=== PATIENT | female | born 1975 | race Caucasian/White ===

== ENCOUNTER 2022-06-11 18:20 | Emergency (ER) | payer OTHER, SELFPAY ==
--- NOTE | ~2022-06-11 | XR_ITS ---
XR ankle LT min 3V DATE: 06/11/2022 18:56 INDICATION: Pop in posterior ankle. Pain. TECHNIQUE: 4 views COMPARISON: None FINDINGS: No fracture or dislocation of the ankle or disruption of the ankle mortise. No periosteal r eaction or bone destruction. Plantar calcaneal enthesopathy. IMPRESSION: No fracture or dislocation of the ankle Plantar calcaneal enthesopathy Reviewed, dictated and finalized at location A.
[2022-06-11 18:22] VITALS: BP 139/87; PULSE 83; RESP 16; TEMP 37.4; O2SAT 100
[2022-06-11 19:47] VITALS: BP 140/101; PULSE 84; RESP 15; TEMP 37.2; O2SAT 97
--- NOTE | 2022-06-11 20:08 | PC.NURSE ---
Upon assessment patient had equal +3 bilateral pedal pulses.
--- NOTE | 2022-06-11 20:51 | ED.LOWEXIN ---
HPI - Extremity Injury (Lower) General Chief Complaint: Extremity Injury, Lower Stated Complaint: lower extremity injury Time Seen by Provider: 06/11/22 20:00 History of Present Illness HPI Narrative: This is a 47-year-old female who denies past medical history, who presents emergency department complaining of left ankle pain. She states she was playing soccer, when during a fast movement, she felt a pop in the left ankle accompanied by immediate 6/10 sharp pain. Her pain is since improved to a 3 of 10 though she complains of some left foot numbness. She states she was able to walk after the incident though feels some weakness in the left foot. Related Data Allergies Allergy/AdvReac Type Severity Reaction Status Date / Time adhesive Allergy Mild Rash Verified 06/11/22 18:26 Review of Systems Review of Systems: CONSTITUTIONAL: Denies fever, chills, or sweats. CARDIOVASCULAR: Denies chest pain, palpitations, or edema. RESPIRATORY: Denies cough or dyspnea. GASTROINTESTINAL: Denies abdominal pain, nausea, vomiting, or diarrhea. GENITOURINARY: Denies dysuria or hematuria. SKIN: Denies rash or itching. MUSCULOSKELETAL: Left ankle pain denies back pain or myalgia. NEUROLOGIC: Denies headache, numbness, dizziness, or weakness. PSYCHIATRIC: Denies anxiety or depression. [facility] Social History Social History (Updated 06/11/22 @ 20:52 by Alessio Chery MD) Smoking status: Never smoker Alcohol intake: current Substance use: never Exam Narrative: GENERAL: Well-developed, well-nourished, and in no acute distress. HEAD: Normocephalic, atraumatic. EYES: PERRLA and EOMI. CHEST: Clear to auscultation. No respiratory distress. No wheezes rales or rhonchi HEART: Regular rate and rhythm. No murmur heard. Normal peripheral pulses. ABDOMEN: Soft, nontender, nondistended, normal active bowel sounds. EXTREMITIES: Mild swelling noted to the posterior aspect of the left ankle. Tender to palpation over the posterior aspect with diminished prominence of the Achilles tendon. Normal range of motion with intact strength on flexion of the left ankle. No edema. SKIN: Warm, dry, no rash. NEURO: No focal deficits. Alert and oriented x3. Strength 5/5 in all extremities, sensation intact bilaterally, no noted ataxia. PSYCH: Normal mood and affect. Course Course Emergency Course: 20:46 - Bedside ultrasound by me of the left Achilles is consistent with rupture. The patient's exam is most consistent with partial Achilles tendon rupture. Will place in a posterior leg splint with slight plantarflexion with plan for orthopedic surgery follow-up. 21:15 - I reevaluated the patient after splint placement. Her exam is not concerning for neurovascular compromise. I recommended orthopedic surgery follow up in 5-7 days. Discussed return and emergency precautions including signs/symptoms of neurovascular compromise and infection. The patient voiced understanding and is comfortable with the plan. Vital Signs Vital signs: Vital Signs Temperature 99.4 F 06/11/22 18:22 Pulse Rate 83 06/11/22 18:22 Respiratory Rate 16 06/11/22 18:22 Blood Pressure 139/87 06/11/22 18:22 Pulse Oximetry 100 06/11/22 18:22 Oxygen Delivery Room Air 06/11/22 18:22 Temperature 98.5 F 06/11/22 21:30 Pulse Rate 76 06/11/22 21:30 Respiratory Rate 16 06/11/22 21:30 Blood Pressure 114/83 06/11/22 21:30 Pulse Oximetry 99 06/11/22 21:30 Oxygen Delivery Room Air 06/11/22 19:47 Procedures Orthopedic Splinting/Casting Injury #1: Splinting/Casting Date: 06/11/22 Splinting/Casting Time: 21:15 Side: left Lower Extremity Injury Location: ankle Lower Extremity Immobilizer: posterior splint Splint: customized in ED Pre-Procedure Neuro Vascular Exam: normal Post-Procedure Neuro Vascular Exam: normal Other Orthopedic Equipment: crutches MDM - Extremity Injury (Lower) MDM Narrative Medical
[2022-06-11 21:30] VITALS: BP 114/83; PULSE 76; RESP 16; TEMP 36.9; O2SAT 99
== END 2022-06-11 21:32 | disposition home or self-care (01) ==
PROVIDERS: Emergency Provider Preventive Medicine Aerospace Medicine
DX: S86.012A Strain of left Achilles tendon, initial encounter (principal); X50.9XXA Other and unspecified overexertion or strenuous movements or postures, initial encounter; Y93.66 Activity, soccer
CPT/HCPCS: 29515; 73610; 99283

== ENCOUNTER 2024-04-20 08:45 | Emergency (ER) | payer SELFPAY ==
--- OUTSIDE RECORDS SUMMARY | 2024-04-20 08:47 | XMS_ITS | Clinical Summary ---
Author Organization [facility] Address [address] [place] [address] Care Team Providers Care Char Dust Cleaner And Salvager Name Role Phone Unavailable Primary Care Provider Unavailabl e Source Comments [facility],non-owned Affiliates and Associated Physician Practices is amultiple site organization consisting of ambulatory clinics and hospital sitesin [place], [place] and [place]. This disclosure is being madepursuant to the Care Everywhere program and may not contain all information available regarding this patient. Last updated 17.[facility] Active Problems Problem Noted Date Diagnosed Date Hyphema 10/22/2012 Family History Medical History Relation Name Comments Heart Disease Paternal Grandmother Blindness Neg Hx Cataract Neg Hx Glaucoma Neg Hx Macular Degeneration Neg Hx Relation Name Status Comments Paternal Grandmother Social History Tobacco Use Types Packs/Day Years Used Date Smoking Tobacco: Former Cigarettes Smokeless Tobacco: Never Alcohol Use Standard Drinks/Week Comments Yes 11.7 (1 standard drink = 0.6 oz pure alcohol) Sex and Gender Information Value Date Recorded Sex Assigned at Not on file Gender Identity Not on file Sexual Orientation Not on file Last Filed Vital Signs Vital Sign Reading Time Taken Comments Blood Pressure 127/81 10/21/2012 2:38 AM CDT Pulse 55 10/21/2012 2:38 AM CDT Temperature 36.7 ??C (98.1 ??F) 10/20/2012 8:52 PM CD T Respiratory Rate 18 10/21/2012 2:38 AM CDT Oxygen Saturation 99% 10/21/2012 1:28 AM CDT Inhaled Oxygen Concentration - - Weight - - Height - - Body Mass Index - - Plan of Treatment Health Maintenance Due Date Last Done Comments FERNANDO (AGES 45-75) - COL ON CA SCREENING 1975 COLON MONITORING 1975 COLONOSCOPY - COLON CA SCREENING 1975 CT COLONOGRAPHY - COLON CA SCREENING 1975 Colorectal Cancer Screening 1975 FIT - COLON CA SCREENING 1975 FLEX SIG - COLON CA SCREENING 1975 LIPID TESTING 1975 MAMMOGRAM 1975 PAP SMEAR 1975 HIV SCREENING 1990 HEPATITIS C SCREENING 01/18/1993 DTAP/TDAP/TD VACCINES (1 - Tdap) 1994 HEPATITIS B VACCINE (1 of 3 - 19+ 3-dose series) 1994 COVID-19 VACCINE (1 2023-2 5 season) 2023 INFLUENZA VACCINE (#1) 2023 DEPRESSION SCREENING 03/19/2024 ZOSTER VACCINE (1 of 2) 2025 HIB VACCINE Aged Out No longer eligi ble based on patient's age to complete this topic HPV VACCINE Aged Out No longer eligi ble based on patient's age to complete this topic MENINGOCOCCAL (Group B) VACCINE Aged Out No longer eligible based on patient's age to complete this topic MENINGOCOCCAL VACCINE Aged Out No marshall sulma eligible based on patient's age to complete this topic PNEUMOCOCCAL VACCINE Aged Out No long er eligible based on patient's age to complete this topic
--- OUTSIDE RECORDS SUMMARY | 2024-04-20 08:47 | XMS_ITS | Data Portability ---
Author Organization [place] [facility] [employer], Main Office Address [address] [place] [address] Assessment Encounter Date Assessment Date Assessment LastModified by Organization Details LastModified Time 08/22/2022 08/22/2022 Patient returns status post Achilles tendon repair. She has benefited aggressive on she not using any support walking normally. She has been swimming and she has got some mild erythema and swelling about the incision. Placed on some Keflex is no obvious drainage at this point. I will see her back 2 weeks if she has any changes or problems she will call discussed. [email or web address] Not available 08/22/2022 09:18:10 10/02/2022 10/02/2022 Patient is statu s post Achilles tendon repair left. She has unusual swelling and prominence over the scar. Racquet I had her on a short course of antibiotics she really does not have any obvious purulence there is no erythema about it just prominent she is going to try just gentle massage and Aquaphor I will see her back in a month for follow-up. PE changes she will call she may be reacting to the sutures however at this point I would like to wait before considering debriding removing anything discussed. I will see her back in 3 weeks for follow-up [email or web address] Not available 10/02/2022 10:10:40 10/24/2022 10/24/2022 Patient returns for and sedation weeks minimally changed she continues to have some swelling about the incision with this infected her she has have reaction to the suture it is difficult to say at any rate I think it needs to be debrided she does have a powerful plantar flexion which is good. I told her that if she does have infection this can be a problem with necrosis in the tendon we will debride it and see if we can clean it up discussed. [email or web address] Not available 10/24/2022 09:30:14 11/07/2022 11/07/2022 Patient returns status post debridement left Achilles. The incision looks relatively clean apparently the cultures have shown its beta lactamase positive will switch her to doxycycline for this. I will see her back and we could remove the other half of the sutures have been removed today she should continue to keep a clean in the meantime. I told her that sometimes infection is hard to get rid of particular in the area where has lower blood flow, discussed. She is instructed to call immediately if there is any change. [email or web address] Not available 11/07/2022 09:22:49 11/14/2022 11/14/2022 Patient returns Achilles rupture left. I debrided the area and she has still can not some areas of concern in the incision. She also most incisions healed nicely she has got 1 area that is about 8 mm across it is open. We will treat this symptomatically at this point. I think she should stay on the doxycycline for the present time and I have given her prescription for that. I will see her back in a couple weeks see assess her progress if she has any changes or problems she will call immediately. [email or web address] Not available 11/14/2022 09:53:32 Plan of Treatment Reminders Order Date Submit Date Provider Last Modified By Organization Details Last Modified Time Details Appointments None recorded. Lab None recorded. Referral None recorded. Procedures None recorded. Surgeries None recorded. Imaging None recorded. Medication Orders cephalexin 500 mg capsule 2022 023 eleni Fulton [facility][id number], [address], [place], [place], [id number], 09:18:37 cephalexin 500 mg capsule 2022 023 eleni Fulton [facility] #[id number], [address], [place], [address], 09:23:01 doxycycline hyclate 100 mg tablet 2022 023 eleni Fulton [facility] #[id number], [address], [place], [address], 09:53:21 doxycycline hyclate 100 mg tablet 2022 023 eleni [address] [id number], [address], [place], [address], 09:46:58 Patient TargetsNo targets recorded. Patient InstructionsNo instructions recorded. Reason for Referral None Reported. Results Created Date Observation Date Name Description Value Unit Range Abnormal Flag Note LastModifiedBy Organization Detail LastModifiedTime 10/31/19 23 10/30/2022 CULTU RE WOUND /TISS UE+GR .STAI N [email or web address] ===== ===== ===== ===== ===== ===== ===== ===== ===== ===== ===== ===== ===== ===== ===== ===== ===== ===== ===== ===== ===== ===== ===== ===== CULTU RE NO.: [id number] Exam Statu s: Final Exam Type: CULTU RE WOUND /TISS UE+ ===== ===== ===== ===== ===== ===== ===== ===== ===== ===== ===== ===== ===== ===== ===== ===== ===== ===== ===== ===== ===== ===== ===== ===== Cultu re Repor t: Organ ism #01 Staph yloco ccus aureu s (staa ur) Antib iotic s staau r Achie vable Achie vable (01) Dosag e Serum Level Urine Level mcg/m l mcg/m l Beta- Lacta shirley + POS 000M Cefox itin Scree n - NEG 000M Cipro floxa eleni <=0.5 S 000M Clind amyci n <=0.1 2 S 000M Dapto mycin 0.5 S 000M Doxyc yclin e <=0.5 S 000M Eryth romyc in <=0.2 5 S 000M Genta micin <=0.5 S 000M Induc ible Clind amyci - NEG 000M Levof loxac in 0.25 S 000M Linez olid 2 S 000M Oxaci llin LUCIA 0.5 S 000M Rifam pin <=0.5 S 000M Tetra cycli ne <=1 S 000M Trime thopr im/Aviles lfame <=10 S 000M Vanco mycin <=0.5 S 000M Not Available [facility] ([facility]) [address] [place], [address], 11/02/2022 08:42:52 Result Notes None recorded. Problems Name Problem SNOMED Code Status Onset Date Resolution Date Notes Provider Name and Address Organization Details Recorded Time Ankle pain 568911653 Active 023 DARREN Price null, [facility] [employer] [facility] 3 10:54:45 Ankle pain 430840718 Active 023 DARREN Price null, [facility] 3 10:54:55 Injury of Achilles tendon 647782531 Active 023 Jordy Paredes MD [address], [address], [place], [address] , [facility] [employer] [facility] 3 07:44:04 Problem Notes None recorded. Procedures Surgical History Date Name Laterality Status Provider Name and Address Organization Details Recorded Time leg repair completed DARREN Price [facility] 06/13/2022 10:53:53 removal of ectopic fetus completed DARREN Price [facility] [employer] [facility] 06/13/2022 10:54:05 section completed DARREN Price [facility] [employer] [facility] 06/13/2022 10:54:15 Imaging Results None recorded. Procedure Notes None recorded. Medical Equipment None Reported. Medications Name Sig Start Date Stop Date Status Note LastModified by Organization Details LastModified Time acetaminophen 300 mg-codeine 30 mg tablet TAKE 1 TABLET BY MOUTH EVERY 6 HOURS active Not Available Not Available No t Available valacyclovir 500 mg tablet TAKE 1 TABLET BY MOUTH EVERY DAY active Not Available Not Available No t Available oxycodone-aceta minophen 5 mg-325 mg tablet TAKE 1 TABLET BY MOUTH EVERY 8 HOURS NEEDED FOR PAIN active Not Available Not Available No t Available cephalexin 500 mg capsule Take 1 capsule every 8 hours by oral route for 10 days. 2022 active Not Available Not Available Not Avai lable [place] 7.5 mg-325 mg tablet Take 1 tablet every 6 hours by oral route. 2022 active Not Available Not Available Not Avai lable doxycycline hyclate 100 mg tablet Take 1 tablet twice a day by oral route. 2022 active Not Available Not Available Not Avai malikale Vitals Date Recorded Body height Body mass index (BMI) Body weight Provider Name and Address Organization Details Last Updated DateTime 08/22/2022 162.56 cm 27.5 kg/m2 32732.78 g Basia Michael [employer] 08/22/2022 09:03:57 Date Recorded Body height Provider Name an d Address Organization Details Last Updated DateTime 10/02/2022 162.56 cm Basia Michael [employer] 10/02/2022 09:26:39 Date Recorded Body height Body mass index (BMI) Body weight Provider Name and Address Organization Details Last Updated DateTime 10/24/2022 162.56 cm 27.5 kg/m2 84513.78 g Basia Michael [employer] 10/24/2022 09:05:42 Date Recorded Body height Body mass index (BMI) Body weight Provider Name and Address Organization Details Last Updated DateTime 11/07/2022 162.56 cm 28.3 kg/m2 09490.74 g Basia Michael [employer] 11/07/2022 09:06:51 Date Recorded Body height Body mass index (BMI) Body weight Provider Name and Address Organization Details Last Updated DateTime 11/14/2022 162.56 cm 28.3 kg/m2 34960.74 g Rebecca Acosta CNA [employer] 11/14/2022 09:16:30 Social History Question Answer Notes LastModified by Organizat ion Details LastModified Time Tobacco Smoking Status Never Smoker Basia Alec, [facility] null, [place] [facility] 06/13/2022 10:53:24 What Is Your Level Of Alcohol Consumption? Occasional [email or web address] Information not available 06/13/2022 Sex: Unknown Functional Status None recorded. Mental Status None recorded. Family History Relationship Description Onset Age of this Age Resolved Age Notes LastModified by Organization Details LastModified Time Maternal Grandfather Heart disease [email or web address] Not available 2022 10:52:43 Mother Hypertensive disorder [email or web address] Not available 2022 10:52:58 Mother Diabetes mellitus [email or web address] Not available 2022 10:53:06 Medical History No medical history recorded. Gynecological HistoryNo gynecological history recorded. Obstetrics History GPAL:G 0 P 0 0 0 0 Past Encounters Encounter ID Performer Location Encounter Start Date Encounter Closed Date Diagnosis/Indication Diagnosis SNOMED-CT Code Diagnosis ICD10 Code Diagnosis Note [id number] MD JOSSIE Patterson_[place] [address] 06/13/2022 10:40:44 06/13/2022 11:11:28 Ankle pain 243425435 M25.572 [id number] MD YARI PattersonJose [place] [address] 06/27/2022 08:56:59 06/27/2022 10:27:30 Injury of Achilles tendon 980948674 S86.002D [id number] MD YARI PattersonJose [place] [address] 07/25/2022 09:00:18 07/25/2022 09:31:27 Injury of Achilles tendon 364083342 S86.002D [id number] MD YARI PattersonJose [place] [address] 08/22/2022 09:02:28 08/22/2022 09:19:48 Injury of Achilles tendon 072524969 S86.002D [id number] [facility] [place] [facility] [place] [address] [place] [address] 10/02/2022 09:21:14 10/02/2022 10:03:24 Injury of Achilles tendon 630364207 S86.002D [id number] Jordy Paredes MD [facility]_[address] [address] 10/24/2022 09:02:32 10/24/2022 10:09:56 Injury of Achilles tendon 575855341 S86.002D [id number] Jordy Paredes MD [facility]_[address] [address] 11/07/2022 09:03:56 11/07/2022 09:36:51 Injury of Achilles tendon 603114812 S86.002D [id number] Jordy Paredes MD [address] [address] 11/14/2022 09:08:17 11/14/2022 10:14:49 Injury of Achilles tendon 174174840 S86.002D Health Concerns Section Related Observation LastModified by Organization Detai ls LastModified Time None Recorded Concern Status LastModified by Organization Details LastModified Time None Recorded Advance Directives Directive None Recorded Payers Encounter Date Sequence Insurance Name Policy Number Policy Rees Covered Member ID Rees Member ID Guarantor Name 08/22/2022 1 [employer] (POS) [id number] Hellen Miller [id number] [employer]en [employer] 10/02/2022 1 [employer] (POS) [id number] Hellen Miller [id number] [employer]en [employer] 10/24/2022 1 [employer] (POS) [id number] Hellen Miller [id number] [employer]en [employer] 11/07/2022 1 [employer] (POS) [id number] Hellen Miller [id number] 5 Hellen [employer] 11/14/2022 1 [employer] (POS) [id number] Hellen Miller [id number] Hellen [employer] Notes Date Note Type Note Provider Name and Address Organization Details Recorded Time 08/22/2022 text/html Patient returns status post Achilles repair left. Overall she is doing fine except that she has got a little evidence of infection of the some redness about the incision. She has been swimming and basically doing what she wants. Jordy Paredes MD [address], [place], [address], [facility] [employer] [facility] [employer] [facility] 08/22/2022 09:23:37 10/02/2022 text/html Patient returns status post Achilles tendon reconstruction repair left. Functionally she is doing well she does have this unusual swelling or prominence over the scar. Jordy Paredes MD [address], [place], [address], [employer] [facility] [employer] 10/02/2022 10:11:23 10/24/2022 text/html Patient returns status post Achilles tendon reconstruction repair left. Functionally she is doing well she does have this unusual swelling or prominence over the scar. Jordy Paredes MD [address], [place], [address], [facility] [employer] [facility] [employer] 10/24/2022 09:30:28 11/07/2022 text/html Patient returns status debridement left Achilles. She is doing well having very little pain walking normally. Jordy Paredes MD [address], [place], [address], [facility] [employer] [facility] 11/07/2022 09:53:46 11/14/2022 text/html Patient returns status debridement left Achilles. She is doing well having very little pain walking normally. She does not have much pain but she did have some redness and has a little open area on the incision. Jordy Paredes MD [address], [place], [address], [facility] [employer] 11/14/2022 09:53:47 OBGyn Episode No OBEpisode recorded.
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
--- OUTSIDE RECORDS SUMMARY | 2024-04-20 08:47 | XMS_ITS | Referral Summary ---
Author Organization [facility] Address [address] [place] [address] Care Team Providers Care Chief Business Officer Name Role Phone Unavailable Primary Care Provider Unavailabl e Source Comments [facility],non-owned Affiliates and Associated Physician Practices is amultiple site organization consisting of ambulatory clinics and hospital sitesin [place], [place], [place] and [place]. This disclosure is being madepursuant to the Care Everywhere program and may not contain all information available regarding this patient. Last updated 17.[facility] Active Problems Problem Noted Date Diagnosed Date [...] Mass Index - - Plan of Treatment Not on file
[2024-04-20 08:53] VITALS: BP 157/97; PULSE 82; RESP 14; TEMP 36.6; O2SAT 99
--- NOTE | 2024-04-20 10:07 | ED.EPISTAXIS ---
HPI - Epistaxis General Chief complaint: Epistaxis Stated complaint: nose bleed Time Seen by Provider: 04/20/24 10:05 Source: patient Mode of arrival: ambulatory Limitations: no limitations Related Data Allergies Allergy/AdvReac Type Severity Reaction Status Date / Time adhesive Allergy Mild Rash Verified 06/11/22 18:26 [facility] Social History Social History (Updated 06/11/22 @ 20:52 by Alessio Chery MD) Smoking status: Never smoker Alcohol intake: current Substance use: never Course Vital Signs Vital signs: Vital Signs Temperature 36.6 C 04/20/24 08:53 Pulse Rate 82 04/20/24 08:53 Respiratory Rate 14 04/20/24 08:53 Blood Pressure 157/97 H 04/20/24 08:53 Pulse Oximetry 99 04/20/24 08:53 Oxygen Delivery Room Air 04/20/24 08:53 Temperature 36.6 C 04/20/24 08:53 Pulse Rate 88 04/20/24 11:01 Respiratory Rate 18 04/20/24 11:01 Blood Pressure 154/96 H 04/20/24 11:01 Pulse Oximetry 98 04/20/24 11:01 Oxygen Delivery Room Air 04/20/24 08:53 Procedures Epistaxis Control right: Epistaxis Control Date: 04/20/24 Epistaxis Control Time: 11:10 Time Out Performed: Yes (5) Direct Inspection: yes and anterior source identified Cautery Used: silver nitrate Patient Tolerated Procedure: well Complications: other (None) MDM - Epistaxis MDM Narrative Medical decision making narrative: Patient came from home with intermittent right nostril bleed for a while, Vital signs showing blood pressure 157/97 Physical examination showing dried blood in the right nostrils, no active bleeding Patient declined nasal packing, would like to go home on Jorge Luis-Synephrine nasal spray. Silver nitrate cauterization of Kiesselbach,s plexus was done prior to discharge Patient tolerated the procedure well CBC , PT PTT showed no acute abnormalities Differential Diagnosis Differential diagnosis: Likely anterior epistaxis and other (Dry air, nose picking,) Medical Records Attestation: I reviewed the patient's medical records. Lab Data Attestation: I reviewed the patient's lab results. 04/20/24 10:29 Labs: Lab Results 04/20/24 Range/Units 10:29 WBC 4.6 (4.5-10.0) K/mm3 RBC 4.60 (4.2-5.4) M/mm3 Hgb 13.5 (12.0-15.0) g/dL Hct 40.2 (37.0-47.0) % MCV 87.4 (80-100) fl MCH 29.3 (26-34) pg MCHC 33.6 (32-36) g/dl RDW 13.1 (11.5-14.5) % Plt Count 259 (150-375) k/mm3 MPV 10.1 (7.4-10.4) fl Immature Gran % (Auto) 0.2 (0-0.5) % Neut % (Auto) 56.3 (45.5-73.1) % Lymph % (Auto) 32.9 (18.3-44.2) % Brantley % (Auto) 7.9 (2.6-8.5) % Eos % (Auto) 1.8 (0-4.4) % Baso % (Auto) 0.9 (0.2-1.2) % Lymph # (Auto) 1.50 (0.9-3.2) K/mm3 Brantley # (Auto) 0.4 (0.1-0.6) K/mm3 Eos # (Auto) 0.1 (0-0.3) K/mm3 Baso # (Auto) 0.0 (0.0-0.1) K/mm3 Abs Immat Gran (auto) 0.01 (0.00-0.031) K/mm3 Absolute Neuts (auto) 2.6 (1.3-6.7) K/mm3 Absolute Nucleated RBC 0.000 (0.0-0.012) K/mm3 Nucleated RBC % 0.0 (0.0-0.2) % PT 12.9 (11.1-14.7) Seconds INR 0.9 APTT 27.9 (22.3-36.8) Seconds Critical Care Time Critical Care Time Critical Care Time: No Discharge Plan Discharge Clinical Impression: Epistaxis Patient Disposition: Home, Self-Care Condition: Improved Instructions: Nosebleed (ED) Additional Instructions: Return if symptoms are worsening , call your family physician for appointment, take Tylenol as as needed for aches and pain, continue home medications. Patient Language: Setswana Prescriptions: New Jorge Luis-Synephrine (phenylephrine) 1 % spray,non-aerosol 1 spray intranasal Q6H PRN (Reason: nasal congestion) 3 Days Qty: 15 0RF No Action oxycodone-acetaminophen [Endocet] 5-325 mg tablet 1 tablet PO Q8H PRN (Reason: pain) Qty: 14 0RF Follow-up/Referrals: Lamonte Coy MD [Physician] - 04/23/24 PHYSICIAN,STORAGE ADMINISTRATOR [Primary Care Provider] -
[2024-04-20 10:33] LABS: Basophils Percent Auto 0.9 % (0.2-1.2); Eosinophils Absolute Auto 0.1 K/mm3 (0-0.3); Eosinophils Percent Auto 1.8 % (0-4.4); Hematocrit 40.2 % (37.0-47.0); Hemoglobin 13.5 g/dL (12.0-15.0); Immature Granulocyte Absolute 0.01 K/mm3 (0.00-0.031); Immature Granulocyte Percent A 0.2 % (0-0.5); Lymphocytes Percent Auto 32.9 % (18.3-44.2); Mean Corpuscular HGB Conc 33.6 g/dl (32-36); Mean Corpuscular Hemoglobin 29.3 pg (26-34); Mean Corpuscular Volume 87.4 fl (80-100); Mean Platelet Volume 10.1 fl (7.4-10.4); Monocytes Absolute Auto 0.4 K/mm3 (0.1-0.6); Monocytes Percent Auto 7.9 % (2.6-8.5); Neutrophils Absolute Auto 2.6 K/mm3 (1.3-6.7); Neutrophils Percent Auto 56.3 % (45.5-73.1); Platelet Count Result 259 k/mm3 (150-375); Red Cell Distribution Width 13.1 % (11.5-14.5); White Blood Count 4.6 K/mm3 (4.5-10.0)
--- OUTSIDE RECORDS SUMMARY | 2024-04-20 10:36 | XMS_ITS | Clinical Summary ---
Author Organization [facility] Address [address] [place] [address] Care Team Providers Care Back Up Machine Operator Name Role Phone Unavailable Primary Care Provider Unavailabl e Source Comments [facility] [email or web address],non-owned Affiliates and Associated Physician Practices is amultiple site organization consisting of ambulatory clinics and hospital sitesin [place], [place], [place] and [place]. This disclosure is being madepursuant to the Care Everywhere program and may not contain all information available regarding this patient. Last updated 17.[facility] [email or web address] [facility] Active Problems Problem Noted Date Diagnosed Date [...]
--- OUTSIDE RECORDS SUMMARY | 2024-04-20 10:36 | XMS_ITS | Patient Health Summary ---
Author Organization [facility] Address [address] [place] [address] Care Team Providers Care Echo Technologist Name Role Phone Unavailable Primary Care Provider Unavailpranav e Note from [facility],non-owned Affiliates and Associated Physician Practices is amultiple site organization consisting of ambulatory clinics and hospital sitesin [place], [place], [place] and [place]. This disclosure is being madepursuant to the Care Everywhere program and may not contain all information available regarding this patient. Last updated 17.[facility] Active Problems Problem Noted Date [...]
--- OUTSIDE RECORDS SUMMARY | 2024-04-20 10:36 | XMS_ITS | Referral Summary ---
Author Organization [facility] Address [address] [place] [address] Care Team Providers Care Advertising Copywriter Name Role Phone Unavailable Primary Care Provider Unavailabl e Source Comments [facility],non-owned Affiliates and Associated Physician Practices is amultiple site organization consisting of ambulatory clinics and hospital sitesin [place], [place], [place] and [place]. This disclosure is being madepursuant to the Care Everywhere program and may not contain all information available regarding this patient. Last updated 17.[facility] Active Problems Problem Noted Date Diagnosed Date [...]
[2024-04-20 10:45] LABS: INR 0.9; Prothrombin Time 12.9 Seconds (11.1-14.7)
[2024-04-20 10:46] LABS: Partial Thromboplastin Time 27.9 Seconds (22.3-36.8)
[2024-04-20 11:01] VITALS: BP 154/96; PULSE 88; RESP 18; O2SAT 98
== END 2024-04-20 11:18 | disposition home or self-care (01) ==
PROVIDERS: Emergency Provider Emergency Medicine
DX: R04.0 Epistaxis (principal)
CPT/HCPCS: 30901; 36415; 85025; 85610; 85730; 99283